=== PATIENT | male | born 1950 | race Caucasian/White ===

== ENCOUNTER 2017-01-29 14:03 | Day surgery (SDC) | payer OTHER ==
[~2017-01-29] VITALS: Ht 180.3 cm; Wt 71.7 kg
[~2017-01-29 14:03] MED LIST: ACET-171 PO; ALBU18HF INH; ASPI81TA3 JT; DOXA1TAB2 JT; FENT1PAT7 TRANSDERM; FERR-83 PO; FUR20 PO; GABA250S2 PO; IPRA3AMP IH; Lactated Ringer's 1,000 ML IV ONE; MECL-114 PO; METO25TA6 JT; METR500T PO; OXYCODONE JT; POLY17PO6 PO; RANI150C4 PO; SERT50TA9 JT; SILD20TA14 PO; SIME120L MC; TAMS0.4C98 PO; TRAZ-115 PO
[2017-01-29] MEDS ORDERED: Propofol 10,000 mCg/mL 20 mL Inj ONE (14:04)
[2017-01-29 14:40] VITALS: BP 148/86; PULSE 66; RESP 14; O2SAT 96
[2017-01-29] MEDS ORDERED: OMEP20TA86 PO (14:50)
[2017-01-29] MEDS ORDERED: Lactated Ringer's 1,000 ML IV SCH (15:36)
[2017-01-29] MEDS ORDERED: Lactated Ringer's 500 ML IV PRN (15:36)
--- NOTE | 2017-01-29 15:36 | PCM.HPANE ---
Patient Data Surgeon Admitting Provider: Attending Provider:Geeta Hernandez MD Primary Care Physician:Ken Bradshaw MD Other Provider:Jabier Mcclellan Anesthesia Reason for Visit Esophageal Perforation Ht/WT & BMI Height (Feet): 5 Height (Inches): 11 Weight (Kilograms): 71.67 Body Mass Index 22.00 Allergies Coded Allergies: levofloxacin (Verified Allergy, Unknown, [facility] told family he should not take , unknown reaction, 05/12/16) vancomycin (Verified Allergy, Unknown, 01/28/17) Uncoded Allergies: MSG FOOD ADDITIVES (Allergy, Unknown, diarrhea, 02/08/16) STRAWBERRIES (Allergy, Unknown, facial swelling, 02/08/16) Past Anesthesia History Anesthesia History: Denies:: Abnormal Airway, Anesthesia Reactions, Difficult Intubation, Fam Anesthesia Reaction, Fam Malignant Hypertherm, Malignant Hyperthermia Diabetes History Hx Diabetes?: No MRSA MRSA: No Medications Blood Thinner: Aspirin Last Dose Blood Thinner: Jan 29, 2017 Hypertension Medication: Yes Home Meds Incl Beta Shelby: Yes Date Beta Hselby Taken: Jan 29, 2017 Time Beta Shelby Taken: 0900 Active Scripts Polyethylene Glycol 3350 (Miralax)17 Gm Powd.pack17 Gm PO 1-2 times daily PRN For Constipation #20 DOSE Prov:Geeta Hernandez MD 02/15/16 Reported Medications Omeprazole 20 Mg Tablet.dr20 Mg PO DAILY 01/29/17 Trazodone 50 Mg Jbmtvq78 Mg PO HS Ref 0 01/28/17 Tamsulosin (Flomax)0.4 Mg Capsule0.4 Mg PO QID Ref 0 01/28/17 Simethicone 100 Ml Unwjud39 Ml MC QID 01/28/17 Meclizine (Bonine)25 Mg Tab.chew12.5 Mg PO BID 01/28/17 Ferrous Sulfate 325 Mg Bjvloz093 Mg PO DAILY 30 Days Ref 0 01/28/17 Fentanyl 25 mcg/hr Patch 1 Each Patch.td721 Patch TRANSDERM Q3D Ref 0 01/28/17 [Oxycodone] No Conflict Check5-10 Mg JT Q4HR PRN PA 05/12/16 Sertraline HCl (Sertraline)50 Mg Lnnpld01 Mg JT DAILY 30 Days Ref 0 05/12/16 Doxazosin Mesylate 1 Mg Tablet0.5 Mg JT DAILY #30 TABLET Ref 0 05/12/16 Metoprolol Tartrate 25 Mg Nxgilp98.5 Mg JT Q12HR 30 Days Ref 0 05/12/16 Ipratropium/Albuterol Sulfate (Iprat-Albut 0.5-3(2.5) mg/3 mL Inhalant Soln)3 Ml Ampul.neb3 Ml IH Q6 PRN For Wheezing Ref 0 05/12/16 Sildenafil Citrate (Sildenafil)20 Mg Uhtopf04-58 Mg PO DAILY PRN erectile dysfunction 02/08/16 Albuterol Sulfate (Ventolin HFA Inhaler)200 Puff/18 Gm Inhaler1 Puff INH Q4 PRN For Wheezing #1 INHALER Ref 0 02/08/16 Discontinued Reported Medications Ranitidine 150 Mg Qwlijrh976 Mg PO BID Ref 0 01/28/17 Gabapentin Oral Soln 250 Mg/5 Ml Jnhktdik83 Mg PO DAILY Ref 0 01/28/17 Furosemide 20 Mg Tab20 Mg PO DAILY 30 Days Ref 0 01/28/17 Acetaminophen 500 Mg Qqmenz725 Mg PO Q6H PRN For Fever 01/28/17 Aspirin Chew 81 Mg Chew81 Mg JT DAILY Ref 0 05/12/16 Meclizine (Antivert)12.5 Mg Sjjctn44.5 Mg JT BID PRN For Nausea/Vomiting Ref 0 05/12/16 Ranitidine Liquid 15 Mg/1 Ml Syrup75 Mg JT BID Ref 0 05/12/16 [Loperamide] No Conflict Check75 Mg JT Q6HR PRN For Diarrhea or Loose Stool 05/12/16 Acetaminophen Liquid 160 Mg/5 Ml Tusegvrr293 Mg JT Q4H PRN For Fever #1 BOTTLE Ref 0 05/12/16 Discontinued Scripts Metronidazole (Flagyl)500 Mg Onuxtz307 Mg PO Q8 #21 TABLET Prov:Wang Wells MD 05/16/16 Oxycodone (Roxicodone)5 Mg Tablet5 Mg PO Q4H PRN For Pain #14 TABLET Ref 0 Prov:Wang Wells MD 05/16/16 Cefdinir 125 Mg/5 Ml Susp.peaig566 Mg TUBE BID #170 ML Prov:Wang Wells MD 05/16/16 Ondansetron ODT 4 Mg Tab.rapdis4-8 Mg PO Q4H PRN For Nausea/Vomiting #20 DOSE Prov:Geeta Hernandez MD 02/15/16 History History of ENT Problems?: No HEENT History: Positive for:: Hearing Problem (MILD MASHPEE) Denies:: Abnormal Airway Cataracts (starting,not surgically treated yet) Difficult Intubation Dysphagia Sinus Problem TMJ Denture Type: None Teeth Condition: Within Normal Limits Hx of Heart Problems?: Yes Cardiovascular History: Positive for:: Atrial Fibrillation Hypertension Irregular Heartbeat Pacemaker Denies:: AICD Abdominal Aortic Aneurism Cardiac Surgery Chest Pain Congestive Heart Failure Edema Rheumatic Fever Thrombophlebitis Valvular Heart Disease Hx of Respiratory Problem?: Yes Respiratory History: Positive for:: Chest Surgery (infection esophageal hernia ) Dyspnea (with exertion and randomly at times ) Pneumonia Denies:: Asthma COPD Cough Emphysema Hemoptysis Oxygen Administration Tuberculosis Use of C-PAP Machine Other Resp Pertinent History: NEBULIZER/INHALER USE PRN FOR FREQUENT BRONCHITIS Hx Neurologic Problems?: No Neurological History: Denies:: Alzheimer's Disease CVA Dementia Dizziness Headaches (single incident of "sharp pain"- MRI workup negative) Multiple Sclerosis Parkinson's Disease Seizures Hx of GI Problems?: Yes Hx of Problems?: No Genitourinary History: Denies:: Kidney Stones Urinary Tract Infection Male Hx: Positive for:: Prostate Problems (BPH enlarged prostate ) Denies:: Scrotal Mass Testicular Surgery Skin History: Denies:: History Skin Disorders? Pressure Ulcers Hx Musculoskeletal Problems?: Yes Musculoskeletal History: Positive for:: Back Injury (back pain- hx of not current , sees chiropractor occasionally) Denies:: Degenerative Joint Fibromyalgia Joint Replacement Musculoskeletal Trauma Systemic Lupus Hx of Psycho/Social Problems?: Yes Psycho Social History: Positive for:: Hx Depression Denies:: Anxiety Bipolar Disorder Suicide Attempt (but has had thoughts of wanting to . No plan. ) Hx Surgeries?: Yes (PACER, HH, ESOPH RUPTURE, NUMEROUS ABD SURG) Hx Any Other Health Problems?: Yes Other History: Positive for:: Hospitalization Denies:: Cancer Endocrine Disease Thyroid Disease History Blood Transfusions: Positive for:: Blood Transfusions Denies:: Blood Transfuse Reaction Hx Diabetes: No Hx Alcohol Use: NoHx Substance Use: No Smoking Status: Former Smoker Have You Smoked inLast 12 mo: No (10 years ago ) Stop/Bang Treated for Sleep Apnea?: No Do You Have a CPAP Machine?: No S-Snoring: Do You Snore Loudly: No T-Tired: feel tired, fatigued: No O-Obsered: Observed not breath: No P-Blood Pressure: treated: Yes B- Body Mass Index > 35 kg/m2: No A- Age over 50: Yes N- Neck Large Circumference: No G- Gender Male: Yes BRENNA Total Score: 3 Risk Assessment Category Category 1A: Patient has history of documented sleep apnea, and HAS NOT received any narcotic, sedative or anesthesia administration during this stay. Category 1B: Patient has history of documented sleep apnea, and HAS received any narcotic , sedative or anesthesia administration during this stay Category 2: Patient has SUSPECTED Obstructive Sleep Apnea, and HAS received any narcotic , sedative or anesthesia administration during this stay. Category 3: Patient has SUSPECTED Obstructive Sleep Apnea and HAS NOT received narcotic, sedative or anesthesia administration during this stay. Category 4: Outpatient in Procedural Areas with known sleep apnea or who screen positive for High Risk via the STOP/BANG questionnaire. Exam Exam Vital Signs Vital Signs Date Time Temp Pulse Resp B/P Pulse Ox O2 Delivery O2 Flow Rate FiO2 01/29/17 14:40 66 14 148/86 96 Room Air General Appearance: Mild Distress HEENT/AIRWAY: MP 2 Lungs: Clear to Auscultation, Normal Air Movement Heart: Exam Unremarkable, Regular Rate/Rhythm, No Murmurs/Rubs/Gallops Meds/Labs/Diagnostics Admission Meds Current Medications Lactated Ringer's (Lr) 1,000 ml @ 10 mls/hr Q24H ONCE IV Last administered on 01/29/17t 15:02; Start 01/29/17 at 06:00; Stop 01/30/17 at 05:59 Plan Impression Patient chart reviewed, patient interviewed and anesthestic plan with risks, benefits, and alternatives discussed, and informed consent obtained. ASA Physical Status: ASA2 Mod Systemic Disease Anesthetic Plan: MAC Bene/Risks/Altern/Consents: Yes HP Complete Prior to Induction: Yes Markus Garcia MD Jan 29, 2017 15:36
[2017-01-29] MEDS ORDERED: Ondansetron 2 mg/mL 2 mL Inj IVPUSH PRN (15:40)
[2017-01-29] MEDS ORDERED: fentaNYL-PF 50 mCg/mL 2 mL Inj IVPUSH PRN (15:40)
[2017-01-29] MEDS ORDERED: MetoCLOpramide 5 mg/mL 2 mL Inj IVPUSH PRN (15:40)
[2017-01-29] MEDS ORDERED: Phenylephrine 10,000 mCg/mL Inj IVPUSH PRN (15:40)
[2017-01-29] MEDS ORDERED: Dexamethasone 4 mg/mL Inj IVPUSH PRN (15:40)
[2017-01-29] MEDS ORDERED: HYDROmorphone 1 mg/mL Inj IVPUSH PRN (15:40)
[2017-01-29] MEDS ORDERED: EPHEDrine Sulfate 50 mg/mL Inj IVPUSH PRN (15:40)
[2017-01-29 16:03] VITALS: BP 87/58; PULSE 68; RESP 14; O2SAT 92
[2017-01-29 16:16] VITALS: BP 127/75; PULSE 66; RESP 12; O2SAT 94
[2017-01-29 16:20] VITALS: BP 126/78; PULSE 68; RESP 14; O2SAT 96
--- NOTE | 2017-01-30 04:20 | ENDO ---
[address] [address] ENDOSCOPY PROCEDURE PATIENT: KATELYN OREILLY : 1950 MR#: [id number] ADMIT: 01/29/2017 JOB ID: [id number] DATE OF SERVICE: 01/29/2017 PREPROCEDURE DIAGNOSIS(ES): 1. History of esophageal perforations. 2. Chronic anemia. 3. Hiatal hernia. POSTPROCEDURE DIAGNOSIS(ES): 1. History of esophageal perforations. 2. Chronic anemia. 3. Hiatal hernia. PROCEDURE PERFORMED: Upper endoscopy. SURGEON: Geeta Hernandez MD INSTRUMENT: [employer] [id number] ANESTHESIA: Monitored anesthesia care by Dr. Garcia. HISTORY OF PRESENT ILLNESS: This is a 66-year-old man who, nearly one year ago, underwent laparoscopic repair of a giant type 4 hiatal hernia and suffered esophageal perforation, most likely from the bougie at the time of surgery. He underwent subsequent esophageal stenting and thoracotomy with mediastinal drainage. He has recovered from this and has mild chronic anemia, as well as dysphagia. Endoscopy was scheduled for evaluation of the healing of the distal esophagus. FINDINGS: 1. Small recurrence of hiatal hernia with GE junction at 37 cm and diaphragmatic hiatus at 40 cm. 2. One small Jalil's erosion identified. 3. Retained food stuffs within the distal esophagus with associated mild esophagitis. DESCRIPTION OF PROCEDURE: The patient was brought to the endoscopy suite and placed in the left lateral decubitus position. Monitored anesthesia care was induced. A preprocedural pause was performed. The endoscope was advanced into the esophagus, which appeared normal with the exception of the distal esophagus, which was dilated and contained retained food stuffs with associated mild esophagitis. This was suctioned out. The wall appeared scarred, but healed. The endoscope was advanced into the stomach, which appeared normal with the exception of one Jalil's lesion seen on retroflex view of the hiatus. The endoscope was advanced into the proximal third portion of the duodenum, which was normal. There were no masses or strictures seen. The endoscope was withdrawn. The patient tolerated the procedure well. ESTIMATED BLOOD LOSS: None. COMPLICATIONS: None. SPECIMENS: None.
--- NOTE | 2017-01-30 08:24 | PCM.ANEP1 ---
Post Anesthesia PACU Phase 1 Assessment Anesthetic Administered: MAC Level of Alertness: Awake, talking ZELAYA's with Equal Strength: Yes Pain: No Nausea or Vomiting: No CV Function & Hydration Stable: Yes Airway Device: none Oxygen Delivery: Nasal Cannula Lungs: Clear to Auscultation, Normal Air Movement PACU Phase 2 Assessment Complications: No Follow up Care: No Patient Instructions Provided: N/A Markus Garcia MD Jan 30, 2017 08:24
== END 2017-01-29 23:59 | disposition home or self-care (01) ==
LOC: END 14:03
PROVIDERS: ATTEND Surgery
DX: K44.9 Diaphragmatic hernia without obstruction or gangrene (principal); K31.89 Other diseases of stomach and duodenum; K22.3 Perforation of esophagus; D64.9 Anemia, unspecified; I10 Essential (primary) hypertension; I48.91 Unspecified atrial fibrillation; K57.30 Diverticulosis of large intestine without perforation or abscess without bleeding; N40.1 Benign prostatic hyperplasia with lower urinary tract symptoms; K21.9 Gastro-esophageal reflux disease without esophagitis; F32.9 Major depressive disorder, single episode, unspecified; F10.10 Alcohol abuse, uncomplicated; Z87.891 Personal history of nicotine dependence; Z79.891 Long term (current) use of opiate analgesic; Z79.82 Long term (current) use of aspirin; Z95.0 Presence of cardiac pacemaker
CPT/HCPCS: 43235; J7120